=== PATIENT | female | born 1965 | race Caucasian/White ===

== ENCOUNTER 2018-01-28 03:17 | Day surgery (SDC) | payer MEDICARE, MEDICAID ==
[~2018-01-28] VITALS: Ht 171.4 cm; Wt 66.7 kg
[~2018-01-28 03:17] MED LIST: ADAL40PE2 IM; ANAS1TAB34 PO; CALC-852 PO; FELO5TAB34 PO; FLUO-202 PO; HYDR-4309 PO; OLAN2.5T22 PO; SODI325T7 PO; [UNRECOGNIZED DRUG - CODE] PO
[2018-01-28] MEDS ORDERED: ceFAZolin(*) 1 GM VIAL 1 GM in NS(*) 0.9% 100 ML ADDVANT BAG 100 ML IVPB ONE (09:35)
[2018-01-28] MEDS ORDERED: LIDOCAINE/SOD BICARB 8.4% SYR ID ONE (09:35)
[2018-01-28] MEDS ORDERED: FAMOTIDINE 20 MG TAB PO ONE (09:35)
[2018-01-28] MEDS: NORMOSOL R SOLN(*) 1000 ML BAG 1,000 ML IV PRN ×2 (10:14→14:28)
[2018-01-28 10:17] VITALS: BP 172/92
[2018-01-28] MEDS ORDERED: ROPIVACAINE 0.2% 400 MG/200ML 250 ML CONINFUS ONE (11:35)
[2018-01-28] MEDS ORDERED: fentaNYL CITR 100 MCG/2 ML AMP ONE (12:09)
[2018-01-28] MEDS ORDERED: MIDAZOLAM 2 MG/2 ML VIAL ONE (12:09)
[2018-01-28] MEDS ORDERED: LIDOCAINE MPF 1% 5 ML VIAL ONE (12:10)
[2018-01-28] MEDS ORDERED: ONDANSETRON 4 MG/2 ML VIAL ONE (12:10)
[2018-01-28] MEDS ORDERED: DEXAMETHASONE SOD PHOS 10MG/ML ONE (12:10)
[2018-01-28] MEDS ORDERED: PROPOFOL EMUL(*) 10MG/ML 20 ML 20 ML ONE (12:10)
[2018-01-28] MEDS ORDERED: SUGAMMADEX SOD 500 MG/5 ML SDV ONE (12:28)
[2018-01-28] MEDS ORDERED: BUPIVACAIN 0.25% INJ 50ML VIAL ONE (12:49)
[2018-01-28] MEDS ORDERED: KETOROLAC 30 MG/ML VIAL ONE (14:14)
[2018-01-28] MEDS ORDERED: LABETALOL HCL 100 MG/20ML VIAL ONE (14:27)
[2018-01-28 14:45] VITALS: BP 156/99
[2018-01-28] MEDS ORDERED: APAP/HYDROCODONE 325/5 TAB ONE (14:57)
[2018-01-28 15:00] VITALS: BP 134/80
[2018-01-28 15:14] VITALS: BP 127/85
[2018-01-28 15:16] VITALS: BP 112/88
--- NOTE | 2018-02-09 11:15 | OPERATIVE REPORT 1 ---
EVENT DATE: February 09, 2018 SURGEON: Teofilo Garcia MD STRIKE PLANNING APPLICATIONS: MARIC[facility] Main PREOPERATIVE DIAGNOSIS Mass, right great toe. POSTOPERATIVE DIAGNOSIS Mass, right great toe. PROCEDURE PERFORMED Right great toe mass resection. 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 DESCRIPTION OF PROCEDURE The patient was brought to the operating room and placed in a supine position. Her right toe was prepped and draped in normal sterile fashion using Prevail sterile stockinette. Sterile stockinettes and U-drape were placed on the lower extremity. Stockinette was incised from above the knee and held with Coban. Esmarch was then used to exsanguinate the lower extremity and tourniquet turned up to 300 mmHg. Incision was made directly laterally over the medial aspect of the big toe. Skin was incised down to the subcutaneous tissue. Subcutaneous tissue was bluntly dissected down. As soon as I got to the capsule of mass and I opened it, white crystal formation came directly out, almost a little bit of a cottage cheese type material. 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 I washed it out with normal saline. I did not find any tendon or nerve involved, just a very large white mass that was resected. Once it was completely resected and washed out, we closed using 3-0 Monocryl and and 4-0 Monocryl in a subcuticular manner. Adaptic, 4x4s, big bulky Rodriguez dressing. The patient went to recovery without any difficulty. PRASANTH
== END 2018-01-28 14:42 | disposition home or self-care (01) ==
LOC: OR 03:17
PROVIDERS: ATTEND Orthopaedic Surgery
DX: R22.41 Localized swelling, mass and lump, right lower limb (principal)
CPT/HCPCS: 11423; 88304; A9270; J0690; J1100; J1885; J2001; J2250; J2405; J2704; J3010; J3490; J7050; L4360